=== PATIENT | female | born 1940 | race Caucasian/White ===

== ENCOUNTER 2021-08-20 07:32 | Day surgery (SDC) | payer MEDICARE, SELFPAY ==
[2021-08-16 09:08] VITALS: BMI 26.2
--- NOTE | 2021-08-19 09:46 | P.CONAN_ITS ---
Documented by User: Leana Delvalle NP 08/19/21 09:48 HPI - Anesthesia Eval Consult details Narrative: 81yo F for Colonoscopy Colon ca s/p colectomy PMFSH Past Medical History Medical History (Updated 08/13/21 @ 16:54 by Vera Denson, RN) Elevated cholesterol GERD (gastroesophageal reflux disease) History of chemotherapy History of colon cancer Osteoporosis Urethral caruncle Surgical History Surgical History (Updated 08/13/21 @ 16:53 by Vera Denson, RN) H/O right hemicolectomy H/O: hysterectomy History of ablation of neoplasm of liver History of cholecystectomy Hx of cardiac catheterization Hx of colectomy Hx of colonoscopy Hx of foot surgery Hx of hemorrhoidectomy Hx of tonsillectomy Social History Social History Patient Tobacco Use Status: Never used Tobacco Have you been hit, kicked, punched, or otherwise hurt by someone within the past year? If so, by whom?: No Are you DNR?: No Advance Directives: No Advance Directives Information Provided: Yes Recently lost weight without trying: No Nutrition Risks: No Nutritional Risk Meds Allergies Allergy/AdvReac Type Severity Reaction Status Date / Time erythromycin base Allergy Unknown Verified 08/13/21 16:49 Home Medications Medication Instructions Recorded Confirmed Last Taken Type albuterol sulfate 90 mcg/actuation 2 puff INHALATION Q4-6H PRN 08/13/21 08/13/21 Unknown History aerosol inhaler alendronate 70 mg tablet 70 mg PO QWEEK 08/13/21 08/13/21 Unknown History aspirin 81 mg tablet,delayed 81 mg PO DAILY 08/13/21 08/13/21 08/13/21 History release atorvastatin 10 mg tablet 10 mg PO BEDTIME 08/13/21 08/13/21 Unknown History calcium 600 mg capsule 600 mg PO BID 08/13/21 08/13/21 Unknown History cholecalciferol (vitamin D3) 25 25 mcg PO DAILY 08/13/21 08/13/21 Unknown History mcg (1,000 unit) capsule (Vitamin D3) flaxseed 08/13/21 Unknown History fluticasone propionate 93 1 spray INTRANASAL BID 08/13/21 08/13/21 Unknown History mcg/actuation breath activated aerosol metoprolol succinate 50 mg capsule 50 mg PO DAILY 08/13/21 08/13/21 08/20/21 History sprinkle, ext. release 24 hr multivitamin 1 tab PO DAILY 08/13/21 08/13/21 Unknown History omega 8-kry-qqj-fish oil 1,000 mg 1 cap PO DAILY 08/13/21 08/13/21 08/13/21 History (120 mg-180 mg) capsule (Fish Oil) omeprazole 20 mg capsule,delayed 20 mg PO DAILY 08/13/21 08/13/21 08/20/21 History release Exam Exam Date and Time: August 19, 2021 0946 Height,Weight and Vital Signs: Height 4 ft 11.5 in Weight 59.874 kg Assessment and Plan Assessment Anesthesia Assessment: Chart Reviewed Documented by User: Raquel Williamson MD 08/20/21 08:55 PMFSH Active Problems Active Problems: H/o colon Ca with liver mets about 20 years ago. Surgery, chemo H/o cardiac cath per record. Patient denies Patient states h/o arrhythmias. Unclear what kind. EKG on monitor- Sinus Tachy. On metoprolol Past Medical History Medical History (Updated 08/13/21 @ 16:54 by Vera Denson, CAROLINE) Elevated cholesterol GERD (gastroesophageal reflux disease) History of chemotherapy History of colon cancer Osteoporosis Urethral caruncle Family History Family history of problems with anesthesia: No Surgical History Surgical History (Updated 08/13/21 @ 16:53 by Vera Denson RN) H/O right hemicolectomy H/O: hysterectomy History of ablation of neoplasm of liver History of cholecystectomy Hx of cardiac catheterization Hx of colectomy Hx of colonoscopy Hx of foot surgery Hx of hemorrhoidectomy Hx of tonsillectomy History of Problems with Anesthesia: Yes (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 If so, by whom?: No Are you DNR?: No Advance Directives: No Advance Directives Information Provided: Yes Recently lost weight without trying: No Nutrition Risks: No Nutritional Risk Meds Allergies Allergy/AdvReac Type Severity Reaction Status Date / Time erythromycin base Allergy Unknown Verified 08/13/21 16:49 Home Medications Medication Instructions Recorded Confirmed Last Taken Type albuterol sulfate 90 mcg/actuation 2 puff INHALATION Q4-6H PRN 08/13/21 08/13/21 Unknown History aerosol inhaler alendronate 70 mg tablet 70 mg PO QWEEK 08/13/21 08/13/21 Unknown History aspirin 81 mg tablet,delayed 81 mg PO DAILY 08/13/21 08/13/21 08/13/21 History release atorvastatin 10 mg tablet 10 mg PO BEDTIME 08/13/21 08/13/21 Unknown History calcium 600 mg capsule 600 mg PO BID 08/13/21 08/13/21 Unknown History cholecalciferol (vitamin D3) 25 25 mcg PO DAILY 08/13/21 08/13/21 Unknown History mcg (1,000 unit) capsule (Vitamin D3) flaxseed 08/13/21 Unknown History fluticasone propionate 93 1 spray INTRANASAL BID 08/13/21 08/13/21 Unknown His tory mcg/actuation breath activated aerosol metoprolol succinate 50 mg capsule 50 mg PO DAILY 08/13/21 08/13/21 08/20/21 History sprinkle, ext. release 24 hr multivitamin 1 tab PO DAILY 08/13/21 08/13/21 Unknown History omega 6-nqd-edj-fish oil 1,000 mg 1 cap PO DAILY 08/13/21 08/13/21 08/13/21 History (120 mg-180 mg) capsule (Fish Oil) omeprazole 20 mg capsule,delayed 20 mg PO DAILY 08/13/21 08/13/21 08/20/21 History release Exam Height,Weight and Vital Signs: Height 4 ft 11.5 in Weight 59.874 kg Vital Signs Temp Pulse Resp BP Pulse Ox 08/20/21 07:38 97.3 F 101 H 18 143/87 H 98 Airway Mallampati Class: I TM Dist: >3cm Neck ROM: Full Loose/Missing/Broken Teeth: No Heart: RRR Lungs: CTAB Assessment and Plan Assessment Anesthesia Assessment: Anesthesia Plan Discussed Final Anesthetic Review Family History of Problems with Anesthesia: No History of Problems with Anesthesia: Yes (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
[2021-08-20 07:38] VITALS: BP 143/87; PULSE 101; RESP 18; TEMP 36.3; O2SAT 98
[2021-08-20] MEDS: Lactated Ringers 1,000 ML 100 ML IVCONT (07:58)
--- NOTE | 2021-08-20 08:49 | MHC.SHP ---
Pre-Procedural Eval Section A Date of Service: 08/20/21 Section B Chief Complaint: screening Details of Present Illness: screening Relevant Family History (Specify if Yes): No Relevant Social History: None Present Medications: see Short Stay Collaborative assessment Medical History: Significant History (see h and p no changes) History of Previous Operations: Relevant previous surgery/procedure and date(s) (see chart) Allergies: Allergies Allergy/AdvReac Type Severity Reaction Status Date / Time erythromycin base Allergy Unknown Verified 08/13/21 16:49 Review of Systems Sugical H&P ROS: Negative: Constitution, Cardiovascular, Respiratory, Neurological, Psychiatric, Hem-Onc, Allergic/Immunologic, Gastrointestinal, Genitourinary, Musculoskeletal, Integumentary, Endocrine and Eyes/Ears/Nose/Throat Exam Surgical H&P Exam: Normal: HEENT, Normal: Heart, Normal: Lungs, Normal: Extremities, Normal: Abdomen, Normal: Skin and Normal: Neurological Plan I have reviewed the history and physical and performed a pertinent physical examination on my patient. No changes have occurred unless specified.
[2021-08-20 09:35] VITALS: BP 125/61; PULSE 82; RESP 16; TEMP 36.1; O2SAT 98
--- NOTE | 2021-08-20 09:39 | P.BOP_ITS ---
Brief Operative Note Date of Service: 08/20/21 Pre-op diagnosis: screening Post-op diagnosis: same Procedure: colonoscopy Surgeon: Laith Restrepo Anesthesia: MAC Was an Supervisor Pipe Finishing used for this Procedure?: No Estimated blood loss (mL): 0 Pathology: none sent Condition: stable Disposition: PACU
--- NOTE | 2021-08-20 20:37 | OP_ITS ---
SURGEON: Laith Restrepo MD INDICATIONS: Colon cancer screening and prior history of colon cancer. PREOPERATIVE DIAGNOSIS: POSTOPERATIVE DIAGNOSIS: PROCEDURE PERFORMED: Colonoscopy to the neoterminal ileum. ESTIMATED BLOOD LOSS: COMPLICATIONS: ANESTHESIA: ASSISTANTS: SPECIMENS: MEDICATIONS: Monitored anesthesia care. DESCRIPTION OF PROCEDURE: History and physical were performed. The risks and benefits of the procedure were explained to the patient. Informed consent was obtained. The patient was placed in the left lateral decubitus position. Digital rectal exam was performed and was found to be normal. The Olympus pediatric video colonoscope was introduced into the rectum and advanced to the ileocolonic anastomosis. Examination was performed. The scope was removed. She tolerated the procedure well and was taken to recovery area in stable condition. FINDINGS: There was a widely patent ileocolonic anastomosis at about 80 cm from the anal verge. This showed no evidence of recurrent tumor. The neoterminal ileum was normal. Visualized colonic mucosa was within normal limits without evidence of masses, ulcers, or polyps. The quality of the prep was good. Retroflexed examination showed moderate-sized internal hemorrhoids. [id number] external hemorrhoids noted on withdrawal of the colonoscope. IMPRESSION: Normal colonoscopy. RECOMMENDATION: 1. Follow up as needed. 2. Repeat colonoscopy is optional based on age. This could be considered in 5 years. MD ROBBIE Torres/KIRANL / [id number]
== END 2021-08-20 10:10 | disposition home or self-care (01) ==
PROVIDERS: Visit Provider Internal Medicine Gastroenterology
PROC: 0DJD8ZZ Inspection of Lower Intestinal Tract, Via Natural or Artificial Opening Endoscopic (ICD-10-PCS; CPT 45378; principal; 2021-08-20 08:50)
DX: Z12.11 Encounter for screening for malignant neoplasm of colon (principal); Z85.038 Personal history of other malignant neoplasm of large intestine; Z85.05 Personal history of malignant neoplasm of liver; Z98.0 Intestinal bypass and anastomosis status; Z90.49 Acquired absence of other specified parts of digestive tract; Z92.21 Personal history of antineoplastic chemotherapy; K64.8 Other hemorrhoids; K64.4 Residual hemorrhoidal skin tags; K21.9 Gastro-esophageal reflux disease without esophagitis; E78.00 Pure hypercholesterolemia, unspecified; M81.0 Age-related osteoporosis without current pathological fracture; Z79.899 Other long term (current) drug therapy; Z79.82 Long term (current) use of aspirin
CPT/HCPCS: G0105